=== PATIENT | male | born 1970 | race Two or more races ===

== ENCOUNTER 2022-11-02 08:20 | Day surgery (SDC) | payer MEDICAID ==
[2022-10-30 14:20] LABS: Eosinophils # (auto) 0.4 10 ^3/uL (0-0.8); Hemoglobin 15.3 g/dL (13.5-17.5); Lymphocytes # (auto) 0.8 10 ^3/uL (0.4-5.4); Monocytes # (auto) 0.4 10 ^3/uL (0-1.3); Neutrophils # (auto) 2.5 10 ^3/uL (1.6-8.6)
[2022-10-30 14:22] LABS: Basophils # (auto) 0.1 10 ^3/uL (0-0.2); Basophils % (auto) 2.3 % (0.0-2.0); Hematocrit 44.6 % (41.0-53.0); Lymphocytes % (auto) 18.7 % (10.0-50.0); Mean Corpuscular Hemoglobin 38.5 pg (28.0-32.0); Mean Corpuscular Hgb Conc. 34.3 g/dL (32.0-36.0); Mean Corpuscular Volume 112.4 fL (80.0-100.0); Monocytes % (auto) 9.4 % (0.0-12.0); Neutrophils % (auto) 59.6 % (37.0-80.0); Nucleated Red Blood Cells % 0.1 %; Red Blood Cells 3.97 10^6/uL (4.5-5.90); Red Cell Distribution Width 15.2 % (11.8-14.3); White Blood Cell 4.2 10^3/uL (4.4-10.8)
[2022-10-30 14:41] LABS: INR 1.08 (0.9-1.15); Partial Thromboplastin Time 31.1 sec (24.6-33.4)
[2022-10-30 15:11] LABS: Albumin 4.2 g/dL (3.4-5.0); Potassium 4.3 mmol/L (3.5-5.1)
[2022-10-30 15:18] LABS: Bilirubin, Total 0.7 mg/dL (0.2-1.0); Total Protein 8.2 g/dL (6.4-8.2)
[2022-10-30 15:38] LABS: Urine Bacteria NONE SEEN /hpf (None Seen); Urine Blood 2+ /uL (Negative); Urine Mucus FEW (None Seen); Urine Specific Gravity 1.021 (1.001-1.035); Urine Sperm PRESENT /hpf (None Seen); Urine WBC 129 /hpf (0 - 3)
[~2022-11-02] VITALS: Ht 165.1 cm; Wt 69.9 kg
[~2022-11-02 08:20] MED LIST: HYDROmorphone HCL 2 MG/ML VL/or syr IV PRN; METOCLOPRAMIDE HCL 5MG/ml INJ 2ml VIAL IV PRN; MORPHINE SULFATE INJ 2 MG/ml SYRG IV PRN
[2022-11-02] MEDS ORDERED: ceFAZolin 1GM/50ML 100 ML IV ONE (09:12)
[2022-11-02] MEDS ORDERED: KETAMINE HCL 10 ML ONE (10:03)
[2022-11-02] MEDS ORDERED: fentaNYL CITRATE 100 MCG/2 ML VL ONE (10:03)
[2022-11-02] MEDS ORDERED: SODIUM CHLORIDE LOCK 20 ML ONE (10:04)
[2022-11-02] MEDS ORDERED: MIDAZOLAM HCL 2MG/2ML 2ml VIAL (1mg/ml) ONE (10:04)
[2022-11-02] MEDS ORDERED: ONDANSETRON HCL 4 MG/2 ML VIAL ONE (10:04)
[2022-11-02] MEDS ORDERED: PROPOFOL 10 MG/ML 20 ML IV ONE (10:04)
[2022-11-02] MEDS ORDERED: EPINEPHrine HCL 1 MG/1 ML AMP ONE (10:04)
[2022-11-02] MEDS ORDERED: HEPARIN SODIUM (PORCINE) 5000 UNITS/ML 1ML VIAL ONE (10:30)
[2022-11-02] MEDS ORDERED: IOHEXOL 300 MG/ML 100ML BOTTLE IJ ONE ×2 (10:31→11:12)
[2022-11-02] MEDS ORDERED: DexAMETHasone SOD PHOS 10MG/1ML VIAL INJ IV ONE (10:45)
[2022-11-02 12:05] VITALS: BP 135/48
== END 2022-11-02 12:05 | disposition home or self-care (01) ==
LOC: SUR 08:20
PROVIDERS: ATTEND Surgery Vascular Surgery
DX: T82.510A Breakdown (mechanical) of surgically created arteriovenous fistula, initial encounter (principal); Y83.2 Surgical operation with anastomosis, bypass or graft as the cause of abnormal reaction of the patient, or of later complication, without mention of misadventure at the time of the procedure; I12.0 Hypertensive chronic kidney disease with stage 5 chronic kidney disease or end stage renal disease; E11.22 Type 2 diabetes mellitus with diabetic chronic kidney disease; N18.6 End stage renal disease
CPT/HCPCS: 36415; 36901; 71045; 76000; 80053; 81001; 82962; 85025; 85610; 85730; 86850; 86900; 86901; J0171; J0690; J1100; J1644; J2250; J2405; J2704; J3010; Q9967